=== PATIENT | male | born 1940 | race Caucasian/White ===

== ENCOUNTER 2022-03-02 11:57 | Emergency (ER) | payer MEDICARE ==
[~2022-03-02] VITALS: Ht 188 cm; Wt 84.4 kg
[2022-03-02 12:00] VITALS: BP_SYST 126
[2022-03-02 12:47] LABS: BASOPHILS # (AUTO) 0.2 K/uL (0.0-0.2); BASOPHILS % (AUTO) 1.5 % (0.0-2.0); EOSINOPHILS # (AUTO) 0.2 K/uL (0.0-0.4); EOSINOPHILS % (AUTO) 1.8 % (0.0-4.0); HEMATOCRIT 31.4 % (36-54); HEMOGLOBIN 10.1 g/dL (14.0-18.0); LYMPHOCYTES # (AUTO) 3.6 K/uL (1.0-5.5); LYMPHOCYTES % (AUTO) 32.5 % (20.5-51.5); MEAN CORPUSCULAR HEMOGLOBIN 25 pg (27-31); MEAN CORPUSCULAR HGB CONC 32 % (32-36); MEAN CORPUSCULAR VOLUME 78 fL (79.0-98.0); MONOCYTES # (AUTO) 0.8 K/uL (0.0-1.0); NEUTROPHILS # (AUTO) 6.3 K/uL (1.8-7.7); NEUTROPHILS % (AUTO) 57.2 % (40.0-70.0); PLATELET COUNT (AUTO) 235 K/uL (130-430); RED BLOOD CELL COUNT(AUTO) 4.04 MIL/uL (4.2-6.2); RED CELL DISTRIBUTION WIDTH 22.6 % (9.0-15.0); WHITE BLOOD COUNT (AUTO) 10.9 K/uL (4.8-10.8)
[2022-03-02 12:52] LABS: ANION GAP 8 (5-15); CALCIUM 9.4 mg/dL (8.4-11.0); CHLORIDE 101 mmol/L (98-107); CREATININE 1.62 mg/dL (0.55-1.30); GLUCOSE 140 mg/dL (70-99); POTASSIUM 4.6 mmol/L (3.5-5.1); SODIUM SERUM 135 mmol/L (136-145); UREA NITROGEN, BLOOD 50 mg/dL (8-21)
[2022-03-02 13:11] LABS: ALANINE AMINOTRANSFERASE 12 U/L (12-78); ALBUMIN 2.6 g/dL (3.4-4.8); ASPARTATE AMINOTRANSFERASE 16 U/L (10-37); C-REACTIVE PROTEIN QUANT 2.5 mg/dL (0-0.5); TOTAL BILIRUBIN 0.5 mg/dL (0.0-1.0)
[2022-03-02 13:14] LABS: ACETONE, SERUM TRACE (NEGATIVE)
--- NOTE | 2022-03-02 13:27 | NUR ---
accucheck from [facility] results: 127 blood sugar.
--- NOTE | 2022-03-02 13:30 | NUR ---
Pt bib bls from facility with [facility] skin rash bilateral extremities, nka, aaox3, pt is diabetic blood sugar 107 provided turkey sandwich.
--- NOTE | 2022-03-02 13:40 | NUR ---
ER at bedside examining patient.
--- NOTE | 2022-03-02 14:01 | NUR ---
Discharge notes discussed with pt. Pt states does not know facility name of residence. Registration provided [facility] insurance and facility details given to community worker for transp. planning.
--- NOTE | 2022-03-02 14:38 | NUR ---
departmental secretary communicating with insurance for transportation. Delay due to inaccurate face sheet info. provided.
--- NOTE | 2022-03-02 15:51 | NUR ---
typing secretary updated pt inurance invalid and attempting to contact BLS transpo.
[2022-03-02 16:26] VITALS: BP_SYST 126
== END 2022-03-02 16:26 | disposition home or self-care (01) ==
LOC: SED 11:57
DX: L25.9 Unspecified contact dermatitis, unspecified cause (principal); L29.9 Pruritus, unspecified; Z79.899 Other long term (current) drug therapy
CPT/HCPCS: 36415; 80053; 81002; 82009; 82962; 83605; 85025; 86140; 99283

== ENCOUNTER 2022-04-19 16:12 | Emergency (ER) | payer MEDICARE ==
[~2022-04-19] VITALS: Ht 172.7 cm; Wt 72.6 kg
[2022-04-19 16:14] VITALS: BP_SYST 151
[2022-04-19] MEDS ORDERED: IBUP-1969 PO (20:53)
[2022-04-19] MEDS ORDERED: AMOX500C2 PO (20:53)
[2022-04-19] MEDS ORDERED: CARB15DR93 EACH EAR (20:54)
[2022-04-19 23:26] VITALS: BP_SYST 115
== END 2022-04-19 23:10 | disposition home or self-care (01) ==
LOC: SED 19:28
DX: H66.92 Otitis media, unspecified, left ear (principal); H93.8X2 Other specified disorders of left ear; J44.9 Chronic obstructive pulmonary disease, unspecified; E11.9 Type 2 diabetes mellitus without complications; K21.9 Gastro-esophageal reflux disease without esophagitis; I10 Essential (primary) hypertension; Z79.899 Other long term (current) drug therapy
CPT/HCPCS: 71045; 99283

== ENCOUNTER 2022-07-20 10:47 | Emergency (ER) | payer MEDICARE ==
[~2022-07-20] VITALS: Ht 188 cm; Wt 79.4 kg
[~2022-07-20 10:47] MED LIST: AMOX500C2 PO; CARB15DR93 EACH EAR; IBUP-1969 PO
[2022-07-20 10:53] VITALS: BP_SYST 147
[2022-07-20] MEDS ORDERED: ALBUTEROL SULFATE 0.083% 2.5 MG/3 ML VIAL.NEB INH ONE ×2 (11:00→11:19)
[2022-07-20] MEDS ORDERED: IPRATROPIUM BROM 0.5 MG/2.5 ML VIAL.NEB (ATROVENT) INH ONE ×2 (11:00→11:19)
[2022-07-20 12:15] LABS: BASOPHILS % (AUTO) 0.2 % (0.0-2.0); EOSINOPHILS % (AUTO) 0.1 % (0.0-4.0); HEMOGLOBIN 9.1 g/dL (14.0-18.0); LYMPHOCYTES # (AUTO) 1.5 K/uL (1.0-5.5); LYMPHOCYTES % (AUTO) 9.5 % (20.5-51.5); MEAN CORPUSCULAR HEMOGLOBIN 23 pg (27-31); MEAN CORPUSCULAR HGB CONC 30 % (32-36); MEAN CORPUSCULAR VOLUME 77 fL (79.0-98.0); MONOCYTES # (AUTO) 1.1 K/uL (0.0-1.0); MONOCYTES % (AUTO) 6.7 % (1.7-9.3); NEUTROPHILS # (AUTO) 13.3 K/uL (1.8-7.7); NEUTROPHILS % (AUTO) 83.5 % (40.0-70.0); PLATELET COUNT (AUTO) 306 K/uL (130-430); RED BLOOD CELL COUNT(AUTO) 3.91 MIL/uL (4.2-6.2); RED CELL DISTRIBUTION WIDTH 21.2 % (9.0-15.0); WHITE BLOOD COUNT (AUTO) 15.9 K/uL (4.8-10.8)
[2022-07-20 12:25] LABS: INR 1.4 (0.80-1.20); PROTHROMBIN TIME 14.2 SECS (9.5-12.5)
[2022-07-20 12:32] LABS: ANION GAP 5 (5-15); CALCIUM 8.6 mg/dL (8.4-11.0); CHLORIDE 100 mmol/L (98-107); CREATININE 1.68 mg/dL (0.55-1.30); GLUCOSE 324 mg/dL (70-99); UREA NITROGEN, BLOOD 48 mg/dL (8-21)
[2022-07-20 12:36] LABS: ALANINE AMINOTRANSFERASE 17 U/L (12-78); ALBUMIN 2.9 g/dL (3.4-4.8); ASPARTATE AMINOTRANSFERASE 11 U/L (10-37); TOTAL BILIRUBIN 0.3 mg/dL (0.0-1.0)
[2022-07-20] MEDS ORDERED: DIPHENHYDRAMINE INJ 50 MG/ML VIAL IVP ONE (17:15)
[2022-07-20 20:27] VITALS: BP_SYST 135
== END 2022-07-20 17:30 | disposition short-term general hospital (02) ==
LOC: SED 10:47
DX: J44.1 Chronic obstructive pulmonary disease with (acute) exacerbation (principal); J18.9 Pneumonia, unspecified organism; R06.02 Shortness of breath; R05.9 Cough, unspecified; E11.9 Type 2 diabetes mellitus without complications; I10 Essential (primary) hypertension; K21.9 Gastro-esophageal reflux disease without esophagitis; Z79.899 Other long term (current) drug therapy; Z20.822 Contact with and (suspected) exposure to COVID-19
CPT/HCPCS: 80053; 82550; 83880; 85025; 85610; 85730; 87040; 84484; 36415; 93005; 71045; 94640; 99285; 96365; 96375; 83605; 87804 ×2; 87426; J1200; J1956; J7613